=== PATIENT | male | born 1955 | race Caucasian/White ===

== ENCOUNTER 2022-10-22 10:51 | Emergency (ER) | payer MEDICARE ==
[2022-10-22] MEDS ORDERED: Sodium Chloride 0.9% 10 ML Syringe FLUSH PRN (10:54)
[2022-10-22 11:29] LABS: ESTIMATED GFR 75 mL/min (>60)
[2022-10-22 11:42] LABS: TROPONIN I HIGH SENSITIVITY 79.6 pg/mL (<=60.3)
[2022-10-22] MEDS ORDERED: Aspirin 81 MG Tab.Chew PO ONE (12:07)
[2022-10-22] MEDS ORDERED: Heparin Sodium 5,000 Units/ML Vial IVPUSH ONE (12:24)
[2022-10-22] MEDS ORDERED: Heparin Sodium/D5W 25,000 UNITS/500 ML BAG IV SCH (12:30)
[2022-10-22] MEDS: Nitroglycerin 0.4 MG Tab.SL SL PRN ×2 (12:47→13:03)
== END 2022-10-22 14:33 ==
LOC: JP.ED 10:51
DX: I21.4 Non-ST elevation (NSTEMI) myocardial infarction (principal); E11.65 Type 2 diabetes mellitus with hyperglycemia; Z20.822 Contact with and (suspected) exposure to COVID-19
CPT/HCPCS: 36415; 71045; 80053; 82009; 84484; 85025; 85379; 85730; 86140; 93005; 96365; 96366; 96376; 99285; A9270; J1644; J3490; U0002

== ENCOUNTER 2022-11-04 00:47 | Emergency (ER) | payer MEDICARE | END 2022-11-04 03:39 | disposition home or self-care (01) | LOC: JP.ED 00:47 | DX: T83.018A Breakdown (mechanical) of other urinary catheter, initial encounter (principal); I25.10 Atherosclerotic heart disease of native coronary artery without angina pectoris; I10 Essential (primary) hypertension; I25.2 Old myocardial infarction; E11.9 Type 2 diabetes mellitus without complications; Z87.891 Personal history of nicotine dependence | CPT/HCPCS: 99282; 99283 ==

== ENCOUNTER 2023-06-17 16:51 | Emergency (ER) | payer MEDICARE ==
[2023-06-17] MEDS ORDERED: Acetaminophen/HYDROcodone 325-5 MG Tab PO ONE (19:34)
== END 2023-06-17 20:16 | disposition home or self-care (01) ==
LOC: JP.ED 16:51
DX: S76.012A Strain of muscle, fascia and tendon of left hip, initial encounter (principal); I10 Essential (primary) hypertension; E11.9 Type 2 diabetes mellitus without complications; M19.90 Unspecified osteoarthritis, unspecified site; E66.9 Obesity, unspecified; Z68.41 Body mass index [BMI] 40.0-44.9, adult; Z79.82 Long term (current) use of aspirin; Z79.84 Long term (current) use of oral hypoglycemic drugs; Z79.899 Other long term (current) drug therapy; Z79.891 Long term (current) use of opiate analgesic; Z90.49 Acquired absence of other specified parts of digestive tract; X58.XXXA Exposure to other specified factors, initial encounter
CPT/HCPCS: 73501; 99284; A9270